=== PATIENT | male | born 1935 | race Caucasian/White ===

== ENCOUNTER → 2024-08-30 13:05 | Outpatient (REF) | payer MEDICARE, SELFPAY | LOC: CLAB 13:05 | PROVIDERS: ATTENDING PHYSICIAN Otolaryngology | DX: H60.392 Other infective otitis externa, left ear (principal) | CPT/HCPCS: 87070; 87077; 87186 ==

== ENCOUNTER → 2024-11-15 14:00 | Outpatient (REF) | payer MEDICARE, SELFPAY | LOC: CLAB 14:00 | PROVIDERS: ATTENDING PHYSICIAN Physician Assistant | DX: H60.392 Other infective otitis externa, left ear (principal) | CPT/HCPCS: 87070 ==